=== PATIENT | male | born 1960 | race Caucasian/White ===

== ENCOUNTER 2020-11-12 12:36 | Emergency (ER) | payer OTHER ==
[~2020-11-12] VITALS: Ht 185.4 cm; Wt 127.8 kg
[~2020-11-12 12:36] MED LIST: DAPT500V6 IVBOLUS; ERGO500017 PO; IBUP-1223 PO; MULT-717 PO; OMEG1CAP23 PO; OXYC5TAB98 PO; POLY17PO5 PO; SENN-177 PO
--- NOTE | 2020-11-12 13:20 | NUR ---
ASSUMED PT CARE. R SIDE LOW BACK LAVA PAIN. INTERMITTENT EPISODE, BUT EPISODE SEEMS TO INCREASE IN DURATION. USUAL ONSET PAIN WITH EATING. CURRENTLY 1-2 PAIN. LAST NIGHT WAS 05/11. FEVER, CHILLS, N/V. IBUPOFEN TAKEN 0415 THIS AM. NO N, LAST EMESIS 418. PT ABLE TO DRINK FLUID WITH NO COMPLICATION, BUT FOOD IS AN ISSUE. HAD SMALL BITE OF BAGEL THIS AM.
[2020-11-12 14:20] VITALS: BP 140/85
[2020-11-12 14:20] LABS: ALANINE AMINOTRANSFERASE 52 U/L (12-78); ALBUMIN 3.6 g/dL (3.4-5.0); ANION GAP 7 mmol/L (5-15); CALCIUM 8.8 mg/dL (8.5-10.1); CHLORIDE 112 mmol/L (98-107); CREATININE 1.63 mg/dL (0.7-1.3)
[2020-11-12 14:21] LABS: BASOPHILS % (AUTO) 1 % (0-1); EOSINOPHILS % (AUTO) 2 % (1-7); LYMPHOCYTES % (AUTO) 17 % (22-44); MEAN CORPUSCULAR HEMOGLOBIN 31.2 pg (27.5-34.5); MEAN CORPUSCULAR HGB CONC 33.3 g/dL (33.2-36.2); MEAN PLATELET VOLUME 8.8 fL (7.4-10.4); MONOCYTES % (AUTO) 12 % (2-9); NEUTROPHILS % (AUTO) 69 % (42-75); PLATELET COUNT 225 x10^3/uL (130-400); RED BLOOD COUNT 4.97 x10^6/uL (4.38-5.82); RED CELL DISTRIBUTION WIDTH 14.8 % (9.4-14.8)
[2020-11-12 14:22] LABS: MD NO
[2020-11-12 14:23] LABS: ALKALINE PHOSPHATASE 54 U/L (45-117); BILIRUBIN,TOTAL 0.8 mg/dL (0.2-1.0); TOTAL PROTEIN 7.4 g/dL (6.4-8.2)
[2020-11-12 14:42] LABS: MICROSCOPIC AUTO
== END 2020-11-12 16:00 | disposition home or self-care (01) ==
LOC: ED 15:30
DX: N20.1 Calculus of ureter (principal); R10.31 Right lower quadrant pain; R11.2 Nausea with vomiting, unspecified; M54.5 Low back pain
CPT/HCPCS: 36415; 74176; 80053; 81001; 83690; 85025; 99284

== ENCOUNTER 2020-11-22 08:13 | Outpatient (CLI) | payer OTHER ==
[2020-11-22] MEDS ORDERED: ACET325T14 PO (08:38)
[2020-11-22] MEDS ORDERED: IBUP-1902 PO (08:38)
[2020-11-22] MEDS ORDERED: TAMS-11 PO (08:38)
[2020-11-22 09:42] LABS: BASOPHILS % (AUTO) 1 % (0-1); EOSINOPHILS % (AUTO) 2 % (1-7); LYMPHOCYTES % (AUTO) 14 % (22-44); MEAN CORPUSCULAR HEMOGLOBIN 31.4 pg (27.5-34.5); MEAN CORPUSCULAR HGB CONC 34.2 g/dL (33.2-36.2); MEAN PLATELET VOLUME 8.4 fL (7.4-10.4); MONOCYTES % (AUTO) 11 % (2-9); NEUTROPHILS % (AUTO) 73 % (42-75); PLATELET COUNT 356 x10^3/uL (130-400); RED BLOOD COUNT 4.94 x10^6/uL (4.38-5.82); RED CELL DISTRIBUTION WIDTH 13.6 % (9.4-14.8)
[2020-11-22 09:43] LABS: MD NO
[2020-11-22 09:44] LABS: MICROSCOPIC AUTO
[2020-11-22 09:51] LABS: INTERNATIONAL NORMALIZED RATIO 1.04 (0.93-1.1); PROTHROMBIN TIME 11.1 Seconds (9.6-11.5)
[2020-11-22 09:52] LABS: ANION GAP 7 mmol/L (5-15); CALCIUM 9.4 mg/dL (8.5-10.1); CHLORIDE 105 mmol/L (98-107); CREATININE 1.87 mg/dL (0.7-1.3)
[2020-11-25] MEDS ORDERED: HYDROmorphone 1 MG/ML, 1ML INJ IVPush PRN (18:30)
[2020-11-25] MEDS ORDERED: LABETALOL 5MG/ML, 20ML IV PRN (18:30)
[2020-11-25] MEDS ORDERED: OXYcodone 5 MG/5 ML ORAL.SOL UDC PO PRN (18:30)
[2020-11-25] MEDS ORDERED: hydrALAzine 20 MG/ML, 1ML IV PRN (18:30)
[2020-11-25] MEDS ORDERED: KETOROLAC 30 MG/1 ML IVPush PRN (18:30)
[2020-11-25] MEDS ORDERED: ONDANSETRON 2MG/ML, 2ML IVPush PRN (18:30)
[2020-11-25] MEDS ORDERED: PROMETHAZINE 25 MG/ML, 1ML IVPush PRN (18:30)
[2020-11-25] MEDS ORDERED: ALBUTEROL SULFATE 2.5 MG/3 ML NPPB PRN (18:30)
[2020-11-25] MEDS ORDERED: LORazepam 2 MG/ML, 1ML IVPush PRN (18:30)
[2020-11-25] MEDS ORDERED: MEPERIDINE/PF 25MG/0.5ML IVPush PRN (18:30)
[2020-11-25] MEDS ORDERED: METHOCARBAMOL 1,000 MG in DEXTROSE 5% 100 ML IV PRN (18:30)
[2020-11-25] MEDS ORDERED: FENTANYL PF 100 MCG/2ML IV PRN (18:30)
[2020-11-25] MEDS ORDERED: ACETAMINOPHEN 325 MG TABLET PO PRN (18:30)
[2020-11-25] MEDS ORDERED: DIPHENHYDRAMINE 50 MG/ML, 1ML IVPush PRN (18:30)
== END 2020-11-25 23:59 | disposition home or self-care (01) ==
LOC: STAR 08:13 → OR 08:13 → EDSTATUS 17:30 → OR 11-25 08:13 → STAR 11-25 08:13
PROVIDERS: ATTEND Urology
DX: Z01.812 Encounter for preprocedural laboratory examination (principal); Z20.822 Contact with and (suspected) exposure to COVID-19; N20.1 Calculus of ureter
CPT/HCPCS: 36415; 80048; 81001; 82360; 85025; 85610; 87086; 88300; 93005; U0003; C1726; J0360

== ENCOUNTER 2020-11-25 09:30 | Day surgery (SDC) | payer OTHER ==
[~2020-11-25] VITALS: Ht 185.4 cm; Wt 117.6 kg
[~2020-11-25 09:30] MED LIST changes: +ACET325T14 PO; +IBUP-1902 PO; +TAMS-11 PO
[2020-11-25] MEDS ORDERED: SODIUM CHLORIDE 0.9% 1,000 ML IV ONE ×2 (10:00→11:00)
[2020-11-25] MEDS ORDERED: SODIUM CHLORIDE FLUSH 10ML SYR IVF ONE (10:00)
[2020-11-25] MEDS ORDERED: ONDANSETRON 2MG/ML, 2ML IVPush ONE (10:00)
[2020-11-25] MEDS ORDERED: MORPHINE SULFATE 4 MG/ML, 1ML IVPush PRN ×3 (10:00→14:30)
--- NOTE | 2020-11-25 10:34 | NUR ---
PT SENT FROM PCP FOR KIDNEY STONE. SURGERY FOR 1700. PT WAS VOMITING ALL NIGHT AND TOLD TO COME TO ER FOR ADMIT PRIOR TO SURGERY
[2020-11-25] MEDS ORDERED: ONDANSETRON ODT 4 MG ONE (10:37)
[2020-11-25 10:45] LABS: ALBUMIN 3.4 g/dL (3.4-5.0); ANION GAP 5 mmol/L (5-15); CALCIUM 9.4 mg/dL (8.5-10.1); CHLORIDE 110 mmol/L (98-107)
[2020-11-25 10:47] LABS: BASOPHILS % (AUTO) 1 % (0-1); EOSINOPHILS % (AUTO) 1 % (1-7); LYMPHOCYTES % (AUTO) 12 % (22-44); MEAN CORPUSCULAR HEMOGLOBIN 31.1 pg (27.5-34.5); MEAN CORPUSCULAR HGB CONC 33.9 g/dL (33.2-36.2); MEAN PLATELET VOLUME 8.6 fL (7.4-10.4); MONOCYTES % (AUTO) 8 % (2-9); NEUTROPHILS % (AUTO) 79 % (42-75); PLATELET COUNT 349 x10^3/uL (130-400); RED BLOOD COUNT 4.92 x10^6/uL (4.38-5.82); RED CELL DISTRIBUTION WIDTH 13.7 % (9.4-14.8)
[2020-11-25 10:48] LABS: MD NO
[2020-11-25 10:50] LABS: ALANINE AMINOTRANSFERASE 30 U/L (12-78); ALKALINE PHOSPHATASE 68 U/L (45-117); BILIRUBIN,TOTAL 0.5 mg/dL (0.2-1.0); CREATININE 1.62 mg/dL (0.7-1.3); TOTAL PROTEIN 8.3 g/dL (6.4-8.2)
[2020-11-25] MEDS ORDERED: ONDANSETRON 2MG/ML, 2ML ONE ×2 (10:54→17:51)
[2020-11-25] MEDS ORDERED: MORPHINE SULFATE 4 MG/ML, 1ML ONE (10:54)
[2020-11-25] MEDS ORDERED: SODIUM CHLORIDE FLUSH 10ML SYR IVF PRN (11:00)
[2020-11-25] MEDS ORDERED: ONDANSETRON ODT 4 MG PO ONE (11:00)
[2020-11-25] MEDS ORDERED: ONDANSETRON 2MG/ML, 2ML IVPush PRN ×3 (11:00→18:30)
--- NOTE | 2020-11-25 11:08 | NUR ---
IVF, MEDICATED FOR PAIN AND NAUSEA
--- NOTE | 2020-11-25 11:35 | NUR ---
PT READY FOR TRANSFER, REPORT TO [facility]
[2020-11-25 12:00] VITALS: BP 155/84
[2020-11-25] MEDS ORDERED: MIDAZOLAM 1 MG/ML, 2ML ONE (15:43)
[2020-11-25] MEDS ORDERED: FENTANYL PF 100 MCG/2ML ONE (15:44)
[2020-11-25] MEDS ORDERED: PROMETHAZINE 25 MG/ML, 1ML IVPush PRN ×2 (16:00→18:30)
[2020-11-25] MEDS ORDERED: KETOROLAC 30 MG/1 ML IVPush PRN ×2 (16:00→18:30)
[2020-11-25] MEDS ORDERED: HYDROcodone/APAP 7.5-325MG/15ML UDC PO PRN ×2 (16:00→18:30)
[2020-11-25] MEDS ORDERED: HYDROmorphone 1 MG/ML, 1ML INJ IVPush PRN ×2 (16:00→18:30)
[2020-11-25] MEDS ORDERED: OXYcodone 5 MG/5 ML ORAL.SOL UDC PO PRN ×2 (16:00→18:30)
[2020-11-25] MEDS ORDERED: FENTANYL PF 100 MCG/2ML IV PRN ×2 (16:00→18:30)
[2020-11-25] MEDS ORDERED: MEPERIDINE/PF 25MG/0.5ML IVPush PRN ×2 (16:00→18:30)
[2020-11-25] MEDS ORDERED: OMNIPAQUE 350 MG/ML, 50 ML BOTTLE ONE (16:59)
[2020-11-25] MEDS ORDERED: DEXAMETHASONE 4 MG/ML, 1ML ONE (17:51)
[2020-11-25] MEDS ORDERED: NEOSTIGMINE 1 MG/ML, 10ML ONE (17:51)
[2020-11-25] MEDS ORDERED: CEFAZOLIN 1,000 MG ONE (17:51)
[2020-11-25] MEDS ORDERED: GLYCOPYRROLATE 0.2MG/1ML, 5ML ONE (17:51)
[2020-11-25] MEDS ORDERED: ROCURONIUM 10MG/ML,5ML ONE (17:51)
[2020-11-25] MEDS ORDERED: SUCCINYLCHOLINE 20 MG/ML, 10ML ONE (17:51)
[2020-11-25] MEDS ORDERED: PROPOFOL 10 MG/ML, 20ML ONE (17:51)
[2020-11-25] MEDS ORDERED: hydrALAzine 20 MG/ML, 1ML ONE ×2 (18:30→19:07)
[2020-11-25] MEDS ORDERED: OXYcodone 5 MG/5 ML ORAL.SOL UDC ONE ×2 (18:30→18:42)
[2020-11-25] MEDS ORDERED: ACETAMINOPHEN 325 MG TABLET ONE (18:30)
[2020-11-25] MEDS ORDERED: ACETAMINOPHEN 650 MG/20.3 ML UDC ONE (18:42)
== END 2020-11-25 20:00 | disposition home or self-care (01) ==
LOC: ED 10:14 → EDIP 10:36 → UNDOADMIN 10:36 → OUT 10:36 → 4NE 11:43 → EDIP 11:43 → UNDODISIN 20:00 → OUT 20:00
PROVIDERS: ATTEND Emergency Medicine
DX: N13.2 Hydronephrosis with renal and ureteral calculous obstruction (principal); N40.0 Benign prostatic hyperplasia without lower urinary tract symptoms; N35.919 Unspecified urethral stricture, male, unspecified site; K80.20 Calculus of gallbladder without cholecystitis without obstruction; I12.9 Hypertensive chronic kidney disease with stage 1 through stage 4 chronic kidney disease, or unspecified chronic kidney disease; N18.2 Chronic kidney disease, stage 2 (mild); M10.9 Gout, unspecified; E66.9 Obesity, unspecified; Z20.822 Contact with and (suspected) exposure to COVID-19; Z79.1 Long term (current) use of non-steroidal anti-inflammatories (NSAID); Z79.899 Other long term (current) drug therapy; Z87.442 Personal history of urinary calculi
CPT/HCPCS: 36415; 52356; 74018; 80053; 85025; 87635; 93005; 99285; C1726; C2617; J0330; J0360; J0690; J1100; J2250; J2270; J2405; J2704; J2710; J3010; J7030; Q0162; 76000; G0378; Q9967